=== PATIENT | female | born 1940 | race Caucasian/White ===

== ENCOUNTER 2019-03-13 02:38 | Emergency (ER) | payer MEDICARE, BC ==
[2019-03-13] MEDS ORDERED: Sodium Chloride 0.9% 10 ML Syringe FLUSH PRN (02:51)
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
[2019-03-13] MEDS ORDERED: Sodium Chloride 0.9% 1,000 ML IV SCH (03:00)
[2019-03-13] MEDS ORDERED: Iopamidol 755 Mg/ML 200 ML Bottle IV ONE (04:12)
--- NOTE | 2019-03-13 08:11 | CT ---
CT chest Technique: Multiple axial sections through the chest were obtained. Intravenous contrast was utilized. Comparison: No prior chest CT study. Findings: Fracture is again noted within T2 with retrolisthesis fragment extending into the central canal. Significant paravertebral soft tissue swelling/hematoma is noted around this area. Aorta shows atherosclerotic calcification without aneurysm. Coronary artery calcification is noted. Heart is enlarged. Mild interstitial changes are seen believed to be chronic. No pleural effusions or pneumothorax is seen. No pulmonary contusion is identified. No discrete rib fracture is appreciated. Slightly depressed fracture is noted within the manubrium of the sternum on the reconstructed sagittal images. Impression: 1. Burst fracture of T2 again seen with retrolisthesis fragment into the central canal. Significant paravertebral soft tissue swelling/hematoma is seen around this level. 2. Fracture within the manubrium of the sternum. 3. Other incidental findings. No pulmonary contusion is seen. Diagnostic code #5 I agree with preliminary report from [facility], finalized on 03/13/19, 5:[address] abdomen and pelvis Technique: Multiple axial sections were obtained from above the dome of the diaphragm inferiorly through the pubic symphysis. Intravenous contrast was utilized. No oral contrast has been given. Findings: Liver and spleen show no focal abnormality. Adrenal glands show no discrete abnormality. Pancreas is not optimally seen. Kidneys show symmetric contrast enhancement without abnormality. Possible very small cyst is noted within the lower right kidney. The aorta shows atherosclerotic calcification. No retroperitoneal adenopathy or mesenteric abnormalities are seen. No pelvic mass or adenopathy is seen. No free fluid or inflammatory change is identified. Bone window settings were reviewed which show scattered degenerative change within the lumbar spine. No discrete pelvic fracture is seen. Impression: 1. Incidental findings. Nothing acute seen on CT study of the abdomen and pelvis. Diagnostic code #2 I agree with preliminary report from [facility], finalized on 03/13/19, 6:19 AM Central Time
--- NOTE | 2019-03-13 08:11 | CR ---
Chest: Portable view of the chest was obtained. Comparison: Prior chest CT of 03/13/19, no prior chest x-ray. Heart size is mildly enlarged. Mild tortuosity of the thoracic aorta is seen. Lungs show no acute parenchymal change. Bony structures are osteopenic. No acute bony abnormality is grossly seen. Impression: 1. Incidental findings. Nothing acute is appreciated on portable chest x-ray. Diagnostic code #2
--- NOTE | 2019-03-13 08:11 | CT ---
CT cervical spine Technique: Multiple axial sections through the cervical spine were obtained. Reconstructed coronal and sagittal images were obtained. Findings: Posterior spurring and fusion is noted at C6-C7. Mild spondylolisthesis is noted at C4-C5 due to degenerative apophyseal change. Mild disc space narrowing is noted C4-C5. Incidental cyst is noted within the vertebral body of C4. Burst fracture is identified within the vertebral body of T2. Retrolisthesed fragment at T2 is seen posteriorly projecting into the central canal by 7 mm. This finding indents the anterior thecal sac and displaces the cervical cord posteriorly. Fracture at T2 extends posteriorly into the posterior elements involving pedicle and lamina on the right side as well as pedicle on the left side. There is perching of the articular facets of T1 on T2. Small fracture is identified within the superior articular surface on the right side of T3. Similar fracture is noted on the left side within the superior articular margin. No additional fracture is seen. Diffuse degenerative apophyseal change is seen. Impression: 1. Burst fracture of T2 with retrolisthesed fragment into the central canal by 7 mm. This effaces the anterior thecal sac and displaces the cervical cord posteriorly. 2. Fracture within T2 extends into the posterior elements involving lamina and pedicle on the right side and pedicle on the left side with extension into the articular margins on both sides. 3. Very small fractures within the tip of the articular margins of T3 on both sides. 4. Perching of the apophyseal joints of T1 on T2 on both sides. 5. Incidental degenerative change. Diagnostic code #5 I agree with preliminary report from [facility], finalized on 03/13/19, 4:46 AM Central Time
--- NOTE | 2019-03-13 08:17 | CT ---
CT lumbar spine Technique: Multiple axial sections through the lumbar spine were obtained. Comparison: No prior lumbar spine imaging. Findings: Scattered degenerative apophyseal change is seen most prominent at the lower levels. Mild disc space narrowing is noted at L3-L4 which shows disc calcification and slight circumferential disc bulging. L4-L5 disc shows vacuum phenomena and minimal diffuse posterior disc bulging. Moderate narrowing noted at L5-S1 with mild diffuse posterior bulge. No fracture seen. No abnormal subluxation is identified. No bony central or bony neural foraminal stenosis is seen. Impression: 1. Degenerative change as noted above. 2. Nothing acute is appreciated on CT study of the lumbar spine. Diagnostic code #2 I agree with preliminary report from [facility], finalized on 03/13/19, 6:02 AM Central Time
--- NOTE | 2019-03-13 08:17 | CT ---
CT facial bones Technique: Multiple axial sections through the facial bones were obtained. Reconstructed coronal and sagittal images were reviewed. Findings: Soft tissue swelling noted within the left periorbital region. Mild areas of mucosal thickening seen within the ethmoid and maxillary sinuses which appears to be chronic. No facial bone fracture is seen. Right and left globes are symmetric in size. Extraocular muscles are also symmetric in size. Severe degenerative change noted within both temporomandibular joints. Impression: 1. Soft tissue swelling within the left periorbital region. 2. Other incidental findings as noted above. No acute bony abnormality is identified on CT facial bone study. Diagnostic code #2 I agree with preliminary report from [facility], finalized on 03/13/19, 4:48 AM Central Time
--- NOTE | 2019-03-13 08:18 | CT ---
Head CT Technique: Multiple axial sections through the brain were obtained. Intravenous contrast was not utilized. Comparison: No prior intracranial imaging. Findings: Ventricles along with basal cisterns and sulci over the convexities are mildly prominent. Minimal diminished density is noted within the periventricular white matter compatible with small vessel ischemic demyelination change. No other abnormal parenchymal densities are seen. No evidence of intracranial hemorrhage or mass effect is seen. Mild mucosal thickening is noted within the ethmoid and maxillary sinuses. No acute calvarial abnormality is appreciated. Impression: 1. Mild senescent change. 2. Nothing acute is appreciated on noncontrast head CT exam. Diagnostic code #2 I agree with preliminary report from [facility], finalized on 03/13/19, 4:47 AM Central Time
--- NOTE | 2019-03-13 08:27 | CT ---
CT thoracic spine Technique: Multiple axial sections through the thoracic spine were obtained. Reconstructed coronal and sagittal images were reviewed. Findings: Burst fracture is noted within T2. Extension into the posterior vertebral line is seen. Retrolisthesis of the posterior vertebral line into the central canal is seen measuring up to 7 mm. This causes effacement of the anterior thecal sac and displacement of the upper thoracic cord. Perching of the facets noted at T1-T2. Very minimal fractures are noted within the superior articular margins on both sides of T-3. Significant soft tissue swelling is noted around T2. Fracture is also noted within the right pedicle and lamina of T2 and of the left pedicle of T2. No additional fracture is appreciated. No abnormal subluxation is otherwise seen. Scattered disc space narrowing and vacuum disc phenomena is noted. Manubrial fracture is again noted. Impression: 1. Burst fracture of T2 with posterior extension of the posterior vertebral line by about 7 mm. 2. Perched facets at T1-T2. 3. Additional fractures within the posterior elements of T2 as noted above. Minimal fractures within the superior articular mass of T3. 4. Paravertebral soft tissue swelling around T2. 5. Manubrial fracture is again noted. 6. Incidental degenerative change. Diagnostic code #5 I agree with preliminary report from [facility], finalized on 03/13/19, 5:17 AM Central Time
== END 2019-03-13 05:21 ==
LOC: JD.ED 02:38
DX: S22.02 Fracture of second thoracic vertebra (principal); S22.21XA Fracture of manubrium, initial encounter for closed fracture; S22.49XA Multiple fractures of ribs, unspecified side, initial encounter for closed fracture; S05.12XA Contusion of eyeball and orbital tissues, left eye, initial encounter; V89.2XXA Person injured in unspecified motor-vehicle accident, traffic, initial encounter; Z79.82 Long term (current) use of aspirin; Z88.5 Allergy status to narcotic agent; Z88.0 Allergy status to penicillin; Z88.2 Allergy status to sulfonamides; V59.9XXA Occupant (driver) (passenger) of pick-up truck or van injured in unspecified traffic accident, initial encounter
CPT/HCPCS: 36415; 51702; 70450; 70486; 71045; 71260; 72125; 72128; 72131; 74177; 80053; 81001; 85025; 93005; 99285; Q9967; 99284